=== PATIENT | male | born 1970 | race Caucasian/White ===

== ENCOUNTER 2016-09-27 07:02 | Emergency (ER) | payer OTHER ==
--- NOTE | ~2016-09-27 | CR72 ---
[facility]. [facility] A Service of [facility] RADIOLOGY TEXT RESULTS PATIENT: TONI KYLE LOCATION: SED : 74 UNIT #: [id number] AGE: [address]: Knen Orona MD SEX: M ORDER DR: [id number] [place] [id number] MR#: [id number] Acc #: [id number] NAME: TONI KYLE : 1970 SEX: M STUDY DATE/TIME: 09/27/2016 6:26 UNIT: SED ROOM: STUDY DESCRIPTION: CR Chest Single View Portable Attending Physician: Kenn Orona M.D. Ordering Physician: Flash Zuniga M.D. MEDICAL IMAGING REPORT This report is preliminary unless electronic signature is present. EXAM Portable chest, 09/27/2016 HISTORY 46-year-old male with chest pain beginning today. COMPARISON None FINDINGS Frontal chest demonstrates clear lungs. No pleural effusion or pneumothorax. Heart size and mediastinum within normal limits. Pulmonary vasculature unremarkable. IMPRESSION No acute cardiopulmonary findings. Dictated by... Jamie Staley M.D. THIS IS AN ELECTRONICALLY VERIFIED REPORT Jamie Staley M.D. at 09/27/2016 3:45 PM Shaina TD: 09/27/2016 09:06 JOB #: [id number] MEDICAL IMAGING REPORT Page 1 of 1
--- NOTE | ~2016-09-27 | EKG ---
PATIENT: TONI KYLE UNIT #: [id number] Ventricular Rate: 74 BPM Atrial Rate: 74 BPM P-R Interval: 120 ms QRS Duration: 84 ms Q-T Interval: 392 ms QTC Calculation(Bezet): 435 ms P Amity: 25 degrees Calculated R Amity: 63 degrees Calculated T Amity: 26 degrees Diagnosis Line: Sinus rhythm with Premature atrial complexes Diagnosis Line: Otherwise normal ECG Diagnosis Line: No previous ECGs available Diagnosis Line: Confirmed by AARON RODRIGUEZ MD ([id number]) on 09/30/2016 Diagnosis Line: 11:11:26 PM INTERPRETING MD: MICHAEL MCCORMICK
[2016-09-27 06:30] LABS: BASOPHIL# 0.1 X10e3 (0-0.3); BASOPHIL% 0.7 % (0-2.5); DIFF IND NO; EOSINOPHIL# 0.2 X10e3 (0-0.7); EOSINOPHIL% 2.7 % (0.0-7.0); HEMOGLOBIN 15.4 gm/dL (13.0-16.0); LYMPHOCYTE# 2.9 X10e3 (1.0-3.5); LYMPHOCYTE% 41.1 % (17.0-45.0); MEAN CELL VOLUME 85.1 FL (83-96); MEAN CORPUSCULAR HEMOGLOBIN 29.1 PG (28-34); MEAN CORPUSCULAR HGB CONC 34.2 g/dL (30-36); MEAN PLATELET VOLUME 8.5 FL (6.5-11.5); MONOCYTE# 0.4 X10e3 (0-1.0); NEUTROPHIL# 3.5 X10e3 (1.5-7.1); NEUTROPHIL% 49.5 % (40-75); PLATELET COUNT 280 X10e3 (140-420); RED BLOOD COUNT 5.28 X10e (3.90-5.60); RED CELL DISTRIBUTION WIDTH 12.9 % (11.0-15.5)
[2016-09-27 06:43] LABS: POC - CKMB 2.1 ng/mL (0.0-7.9)
[2016-09-27 06:44] LABS: POC - MYOGLOBIN 58.6 ng/mL (0.0-169.0); POC - TROPONIN <0.05 ng/mL (<=0.05)
[2016-09-27 06:46] LABS: ALBUMIN SERUM 4.6 g/dL (3.5-5.0); BILIRUBIN,TOTAL 0.6 mg/dL (0.2-2.0); BUN/CREATININE RATIO 10.9; CALCIUM SERUM 9.1 mg/dL (8.4-10.2); CREATININE SERUM 1.1 mg/dL (0.6-1.4); GLOM FILT RATE Estimated 81.2 mL/min (>60); POTASSIUM 3.9 mmol/L (3.5-5.1); PROTEIN TOTAL SERUM 7.5 g/dL (6.0-8.3)
[~2016-09-27 07:02] MED LIST: NO MEDICATIONS
[2016-09-27 08:28] LABS: POC - CKMB 1.8 ng/mL (0.0-7.9); POC - MYOGLOBIN 70.5 ng/mL (0.0-169.0); POC - TROPONIN <0.05 ng/mL (<=0.05)
== END 2016-09-27 09:01 | disposition home or self-care (01) ==
LOC: SED 07:02
PROVIDERS: Emergency Medicine
DX: K21.0 Gastro-esophageal reflux disease with esophagitis (principal)
CPT/HCPCS: 36415; 71010; 80053; 82553; 83874; 84484; 85025; 93005; 96374; 96375; 99284; C9113